=== PATIENT | male | born 1985 | race Caucasian/White ===

== ENCOUNTER 2017-07-06 14:26 | Emergency (ER) | payer OTHER, MEDICAID ==
[~2017-07-06] VITALS: Ht 177.8 cm; Wt 77.1 kg
[~2017-07-06 14:26] MED LIST: AMOCLA500 PO; HYDACE5 PO; RXHYDACE PO
[2017-07-06] MEDS ORDERED: Bactrim Ds Tab1 EACH PO (14:47)
[2017-07-06] MEDS ORDERED: CEPH500 PO (14:47)
== END 2017-07-06 14:59 | disposition home or self-care (01) ==
LOC: ER 14:26
DX: S80.811A Abrasion, right lower leg, initial encounter (principal); L03.115 Cellulitis of right lower limb; F17.210 Nicotine dependence, cigarettes, uncomplicated; Z86.14 Personal history of Methicillin resistant Staphylococcus aureus infection; V89.2XXA Person injured in unspecified motor-vehicle accident, traffic, initial encounter; Y93.02 Activity, running
CPT/HCPCS: 99283

== ENCOUNTER 2018-01-18 09:01 | Emergency (ER) | payer MEDICAID ==
[~2018-01-18] VITALS: Ht 177.8 cm; Wt 79.4 kg
[~2018-01-18 09:01] MED LIST changes: +Bactrim Ds Tab1 EACH PO; +CEPH500 PO
== END 2018-01-18 09:50 | disposition home or self-care (01) ==
LOC: ER 09:01
DX: T40.1X1A Poisoning by heroin, accidental (unintentional), initial encounter (principal); T43.621A Poisoning by amphetamines, accidental (unintentional), initial encounter; F17.210 Nicotine dependence, cigarettes, uncomplicated; Z79.899 Other long term (current) drug therapy
CPT/HCPCS: 99284

== ENCOUNTER 2020-05-24 21:25 | Emergency (ER) | payer OTHER ==
[~2020-05-24] VITALS: Ht 177.8 cm; Wt 86.2 kg
[2020-05-24] MEDS ORDERED: CEPH500 PO (23:31)
[2020-05-24] MEDS ORDERED: Bactrim Ds Tab1 EACH PO (23:31)
== END 2020-05-24 23:40 | disposition home or self-care (01) ==
LOC: ER 21:25
DX: L03.113 Cellulitis of right upper limb (principal); F17.210 Nicotine dependence, cigarettes, uncomplicated
CPT/HCPCS: 99283; A9270